=== PATIENT | male | born 1985 | race Caucasian/White ===

== ENCOUNTER 2025-03-29 19:02 | Emergency (ER) | payer MEDICAID ==
[~2025-03-29] VITALS: Ht 172.7 cm; Wt 82.0 kg
[2025-03-29 19:04] VITALS: O2SAT 99
[2025-03-29 19:08] VITALS: O2SAT 98
[2025-03-29] MEDS ORDERED: DOXY100C5 MT (20:12)
[2025-03-29] MEDS: CEFTRIAXONE SODIUM 500MG VIAL IM ONE (20:15)
[2025-03-29 21:25] LABS: CLARITY URINE CLEAR (CLEAR); COLOR URINE YELLOW (YELLOW); GLUCOSE URINE NEGATIVE (NEGATIVE); KETONES URINE NEGATIVE (NEGATIVE); LEUKOCYTE ESTERASE URINE NEGATIVE (NEGATIVE); NITRITE URINE NEGATIVE (NEGATIVE); OCCULT BLOOD URINE NEGATIVE (NEGATIVE); PH URINE 8.0 (4.5-8.0); PROTEIN URINE NEGATIVE (NEGATIVE); SPECIFIC GRAVITY URINE 1.014 (1.005-1.030); UROBILINOGEN URINE 1.0 E.U./dL (0.2-1.0)
[2025-03-29 21:41] VITALS: BP 121/71; PULSE 88; RESP 16; TEMP 36.3
[2025-03-31 05:10] LABS: HSV TYPE 2 SPECIFIC AB IGG Non Reactive (Non Reactive)
[2025-04-01 13:09] LABS: CHLAMYDIA TRACHOMATIS NAA Positive (Negative); NEISSERIA GONORRHOEAE NAA Negative (Negative)
== END 2025-03-29 21:48 | disposition home or self-care (01) ==
LOC: ER 19:02
DX: Z11.3 Encounter for screening for infections with a predominantly sexual mode of transmission (principal)
CPT/HCPCS: 99283; 86592; 86695; 86696; 87491; 87591; 81003; 36415; 96372; J0696